=== PATIENT | male | born 1960 | race African-American/Black ===

== ENCOUNTER → 2019-07-06 16:14 | Outpatient (CLI) | payer BC, SELFPAY ==
--- NOTE | ~2019-07-06 | XR_ITS ---
XR toe 5th LT min 2V 07/06/2019 16:45 INDICATION: Left fifth toe pain PROCEDURE: 3 views left fifth toe COMPARISON: 07/06/2019 FINDINGS: Fracture, dislocation or subluxation is not identified. The soft tissues appear within norm al limits. No foreign bodies are identified. IMPRESSION: 1: NO ACUTE BONE OR JOINT ABNORMALITY IDENTIFIED. Reviewed, dictated and finalized at Location [facility]. Reviewed, dictated and finalized at location A. T MAINTENANCE ENGINEER
--- NOTE | ~2019-07-06 | XR_ITS ---
XR ankle LT min 3V, XR foot LT min 3V 07/06/2019 16:45 INDICATION: Left lateral ankle and foot pain PROCEDURE: 4 views left ankle and 4 views left foot COMPARISON: No prior studies for comparison. FINDINGS: Fracture, dislocation or subluxation is not identified. Lisfranc joint intact. The soft tis sues appear within normal limits. No foreign bodies are identified. There are moderate degenerative changes of the first MTP joint. There are degenerative changes of the midfoot. There are arterial betty cifications. IMPRESSION: 1: Mild-moderate polyarticular osteoarthritis. Reviewed, dictated and finalized at location A. HOLOGIST EDUCATIONAL IMPRESSION: 1: Mild-moderate polyarticular osteoarthritis.
== END ==
PROVIDERS: PCP Internal Medicine; Visit Provider Internal Medicine
DX: M79.676 Pain in unspecified toe(s) (principal)
CPT/HCPCS: 73610; 73630; 73660

== ENCOUNTER 2019-11-02 11:41 | Outpatient (CLI) | payer BC, SELFPAY ==
--- NOTE | ~2019-11-02 | XR_ITS ---
EXAMINATION: XR knee LT min 4V DATE: 11/02/2019 12:00 INDICATION: Left knee tightness. TECHNIQUE: 4 views of left knee were obtained. COMPARISON: None. FINDINGS: Bone alignment is normal. No fracture. There is mild osteoarthritis of medial and lateral c ompartments characterized by tiny marginal osteophytes. There is a small knee joint effusion. IMPRESSION: 1. Mild left knee osteoarthritis. 2. Small left knee joint effusion. Reviewed, dictated and finalized at location A.
== END 2019-11-02 11:42 | disposition home or self-care (01) ==
PROVIDERS: PCP Internal Medicine; Visit Provider Internal Medicine
DX: M17.12 Unilateral primary osteoarthritis, left knee (principal)
CPT/HCPCS: 73564

== ENCOUNTER 2019-11-15 13:09 | Outpatient (CLI) | payer BC, SELFPAY ==
--- NOTE | ~2019-11-15 | US_ITS ---
EXAMINATION: US joint [facility] DATE: 11/15/2019 13:41 INDICATION: Hammond's cyst. TECHNIQUE: Multiple grayscale and Doppler ultrasound images of the LPO fossa the left knee were obtai tc. COMPARISON: None FINDINGS: The popliteal artery and vein are patent with normal arterial and venous waveforms respectively. No B denny's cyst or other abnormal masses or fluid collections at the left popliteal fossa. IMPRESSION: 1. Normal study. No Hammond's cyst at the left popliteal fossa. Reviewed, dictated and finalized at location A.
== END 2019-11-15 13:10 | disposition home or self-care (01) ==
PROVIDERS: PCP Internal Medicine; Visit Provider Internal Medicine
DX: M25.569 Pain in unspecified knee (principal)
CPT/HCPCS: 76882

== ENCOUNTER → 2020-10-16 03:00 | Outpatient (CLI) | payer BC, SELFPAY ==
[2020-10-16 18:14] LABS: SARS-CoV-2 RNA PCR Negative
== END ==
PROVIDERS: PCP Internal Medicine; Visit Provider Internal Medicine Gastroenterology
DX: Z01.812 Encounter for preprocedural laboratory examination (principal); Z20.822 Contact with and (suspected) exposure to COVID-19
CPT/HCPCS: C9803; U0003; U0005

== ENCOUNTER 2020-10-19 01:40 | Day surgery (SDC) | payer BC, SELFPAY ==
[2020-10-09 13:10] VITALS: BMI 31.8
[2020-10-19 09:29] VITALS: BP 139/80; PULSE 60; RESP 18; TEMP 35.8; O2SAT 100
[2020-10-19] MEDS: LACTATED RINGERS 1,000 ML 150 ML IV CONT (09:47)
[2020-10-19 09:51] LABS: Glucose Point of Care 117 mg/dl (65-105)
--- NOTE | 2020-10-19 10:22 | WPDANESEPPF ---
Anes - Initial Pre Proc Eval Procedure: Operation Date: 10/19/20 11:00 Proposed Procedures p Screening Colonoscopy - Flaquito Crocker MD Date/Time: 10/19/20 10:22 Surgeon: Flaquito Crocker MD Pre Op Diagnosis: neoplasm screening Patient Data Age: 60 Gender: M Height: 5 ft 4 in Weight: 84 kg Last Vital Signs Temp 96.5 F L 10/19/20 09:29 Pulse 60 10/19/20 09:29 Resp 18 10/19/20 09:29 BP 139/80 10/19/20 09:29 Pulse Ox 100 10/19/20 09:29 Allergies Allergy/AdvReac Type Severity Reaction Status Date / Time NUTS AND MANY FRUITS Allergy Unknown Anaphylactic Uncoded 10/19/20 09:27 Shock Home Medications Medication Instructions Recorded Confirmed Type epinephrine 0.3 mg/0.3 mL 0.3 mg IM ONCE 03/25/19 10/19/20 History injection, auto-injector metformin 500 mg tablet 1,500 mg PO DAILY #90 tablet 04/20/19 10/19/20 Rx dapagliflozin 5 mg tablet 5 mg PO QAM #30 tablet 05/31/19 10/19/20 Rx cetirizine 10 mg tablet 10 mg PO DAILY #30 tablet 07/22/19 10/19/20 Rx sodium,potassium,mag sulfates 17.5 See Rx Instructions PO .COMPLEX 10/02/20 10/19/20 Rx gram-3.13 gram-1.6 gram oral soln #354 ml atorvastatin 20 mg PO DAILY 10/09/20 10/19/20 History famotidine 10 mg PO DAILY 10/09/20 10/19/20 History telmisartan 80 mg PO DAILY 10/09/20 10/19/20 History Laboratory Tests 10/19/20 09:48 POC Capillary Glucose 117 mg/dl H mg/dl (65-105) Patient hx anesthesia problems: none Family hx anesthesia problems: none PMFSH Past Medical History Medical History (Updated 03/25/19 @ 14:42 by Tamir Hinton, PAWaleC) BPH (benign prostatic hyperplasia) Controlled diabetes mellitus with hyperglycemia, without long-term current use of insulin Essential (primary) hypertension GERD (gastroesophageal reflux disease) TAMAR (obstructive sleep apnea) Family History Family History (Updated 12/14/15 @ 23:19 by DOCTOR UNKNOWN) Mother Hypertension Cerebrovascular accident Family history of diabetes mellitus in first degree relative Family history of malignant neoplasm of ovary Father Cerebrovascular accident Family history of diabetes mellitus in first degree relative Sibling Family history of diabetes mellitus in first degree relative Social History Social History Smoking status: Never smoker Alcohol intake: current Alcohol use details: socially Substance use: never Substance use type: does not use Living arrangements: with family Spiritual care concerns: No Anes - Eval Final PreProcedure Day of Procedure 10/19/20 10:22 Patient weight: overweight Heart: regular rate and rhythm Lungs: clear to auscultation Airway: Mallampati scale class II Neurological: alert and oriented Last oral intake: >/= 8 hours ASA classification: III Emergent: no Anesthetic plan: proceed Anesthesia type and monitoring: general GIVS and standard monitoring Informed Consent: The patient's anesthetic plan and its attendant risks and benefits were discussed with the patient/family/POA. Questions were solicited and answers provided to the satisfaction of the patient/family/POA.
--- NOTE | 2020-10-19 10:35 | P.HP_ITS ---
History of Present Illness History of Present Illness Consent: Risks, benefits, and alternatives have been discussed and questions answered. Patient agrees to proceed with procedure. Chief complaint: neoplasm screening Narrative: Jose Manuel Laura is a 60 year old male referred for colon cancer screening. His last colonoscopy was 10 years ago Review of Systems Review of Systems: All systems reviewed & are unremarkable except as noted in HPI and below PMFSH Past Medical History Medical History BPH (benign prostatic hyperplasia) Controlled diabetes mellitus with hyperglycemia, without long-term current use of insulin Essential (primary) hypertension GERD (gastroesophageal reflux disease) TAMAR (obstructive sleep apnea) Family History Family History Mother Hypertension Cerebrovascular accident Family history of diabetes mellitus in first degree relative Family history of malignant neoplasm of ovary Father Cerebrovascular accident Family history of diabetes mellitus in first degree relative Sibling Family history of diabetes mellitus in first degree relative Social History Social History Smoking status: Never smoker Alcohol intake: current Alcohol use details: socially Substance use: never Substance use type: does not use Living arrangements: with family Spiritual care concerns: No Meds Home Medications and Allergies Home Medications Medication Instructions Recorded Confirmed Type epinephrine 0.3 mg/0.3 mL 0.3 mg IM ONCE 03/25/19 10/19/20 History injection, auto-injector metformin 500 mg tablet 1,500 mg PO DAILY #90 tablet 04/20/19 10/19/20 Rx dapagliflozin 5 mg tablet 5 mg PO QAM #30 tablet 05/31/19 10/19/20 Rx cetirizine 10 mg tablet 10 mg PO DAILY #30 tablet 07/22/19 10/19/20 Rx sodium,potassium,mag sulfates 17.5 See Rx Instructions PO .COMPLEX 10/02/20 0 10/19/20 Rx gram-3.13 gram-1.6 gram oral soln #354 ml atorvastatin 20 mg PO DAILY 10/09/20 10/19/20 History famotidine 10 mg PO DAILY 10/09/20 10/19/20 History telmisartan 80 mg PO DAILY 10/09/20 10/19/20 History Allergies Allergy/AdvReac Type Severity Reaction Status Date / Time NUTS AND MANY FRUITS Allergy Unknown Anaphylactic Uncoded 10/19/20 09:27 Shock Vital Signs Vital Signs - 24 hr 10/19/20 09:29 Temperature 35.8 C L Pulse Rate 60 Respiratory Rate 18 Blood Pressure 139/80 Pulse Oximetry 100 Exam Resp: Auscultation: clear to auscultation bilaterally Cardio: Rate: regular rate Rhythm: regular rhythm GI: GI Palp: Yes Soft to palpation and No Tenderness to palpation present (GI) Assessment and Plan Assessment and plan (1) Colon cancer screening: Code(s): Z12.11 - Encounter for screening for malignant neoplasm of colon Status: Acute Assessment and Plan: Colonoscopy with possible biopsy or polypectomy or cautery or injection of substances.
[2020-10-19 10:50] VITALS: BP 113/80; PULSE 82; RESP 21; O2SAT 99
[2020-10-19 11:00] VITALS: BP 144/97; PULSE 67; RESP 20; O2SAT 99
[2020-10-19 11:10] VITALS: BP 140/95; RESP 17; O2SAT 99
== END 2020-10-19 11:43 | disposition home or self-care (01) ==
PROVIDERS: PCP Internal Medicine; Visit Provider Internal Medicine Gastroenterology
PROC: 0DJD8ZZ Inspection of Lower Intestinal Tract, Via Natural or Artificial Opening Endoscopic (ICD-10-PCS; CPT 45378; principal; 2020-10-19 11:00)
DX: Z12.11 Encounter for screening for malignant neoplasm of colon (principal); K57.30 Diverticulosis of large intestine without perforation or abscess without bleeding; I10 Essential (primary) hypertension; E11.9 Type 2 diabetes mellitus without complications; K21.9 Gastro-esophageal reflux disease without esophagitis; G47.33 Obstructive sleep apnea (adult) (pediatric); N40.0 Benign prostatic hyperplasia without lower urinary tract symptoms; Z79.84 Long term (current) use of oral hypoglycemic drugs
CPT/HCPCS: 45378; 82948; J2704; J7120

== ENCOUNTER 2022-03-19 00:03 | Day surgery (SDC) | payer BC, SELFPAY ==
[2022-03-13 10:54] VITALS: BMI 31.0
--- NOTE | 2022-03-18 17:17 | PM.HPGS ---
History of Present Illness History of Present Illness Consent: Risks, benefits, and alternatives have been discussed and questions answered. Patient agrees to proceed with procedure. Chief complaint: dysphagia Narrative: Jose Manuel Laura is a 61 year old male who For the past year and a half has had increasing difficulty with swallowing.? It only seems to occur with solid food.? He will be eating something and then it gets caught about long-term down.? He feels tightness and feels as though it might help if he drinks something but he is afraid that the liquid would not go down.? Finally it will pass.? These episodes have been occurring more frequently.? He does get heartburn he uses famotidine as needed for that but has not been on any daily medication in the past for acid reflux. Review of Systems Review of Systems: All systems reviewed & are unremarkable except as noted in HPI and below PMFSH Past Medical History Medical History BPH (benign prostatic hyperplasia) Controlled diabetes mellitus with hyperglycemia, without long-term current use of insulin Essential (primary) hypertension GERD (gastroesophageal reflux disease) TAMAR (obstructive sleep apnea) Family History Family History Mother Hypertension Cerebrovascular accident Family history of diabetes mellitus in first degree relative Family history of malignant neoplasm of ovary Father Cerebrovascular accident Family history of diabetes mellitus in first degree relative Sibling Family history of diabetes mellitus in first degree relative Social History Social History Smoking status: Never smoker Alcohol intake: current Alcohol use details: socially Substance use: never Substance use type: does not use Living arrangements: with family Spiritual care concerns: No Meds Home Medications and Allergies Home Medications Medication Instructions Recorded Confirmed Type epinephrine 0.3 mg/0.3 mL 0.3 mg IM ONCE PRN Anaphylaxis 03/25/19 03/19/22 History injection, auto-injector (EpiPen 2-Titus) metformin 500 mg tablet 1,500 mg PO DAILY #90 tabs 04/20/19 03/19/22 Rx cetirizine 10 mg tablet (Zyrtec) 10 mg PO DAILY #30 tabs 07/22/19 03/19/22 Rx atorvastatin 20 mg tablet 20 mg PO DAILY 10/09/20 03/19/22 History famotidine 10 mg tablet 20 mg PO DAILY 10/09/20 03/19/22 History telmisartan 80 mg tablet 80 mg PO DAILY 10/09/20 03/19/22 History semaglutide 3 mg tablet (Rybelsus) 3 mg PO DAILY 02/18/22 03/19/22 History coQ10 (ubiquinol) 200 mg capsule 200 mg PO DAILY 03/13/22 03/19/22 History Allergies Allergy/AdvReac Type Severity Reaction Status Date / Time NUTS AND MANY FRUITS Allergy Unknown Anaphylactic Uncoded 03/19/22 09:44 Shock Exam Const: General: alert Orientation/consciousness: patient oriented x3 Resp: Auscultation: clear to auscultation bilaterally Cardio: Rhythm: regular rhythm GI: GI Palp: Yes Soft to palpation and No Tenderness to palpation present (GI) Neuro: General: patient oriented x3 Assessment and Plan Assessment and plan (1) Dysphagia: Code(s): R13.10 - Dysphagia, unspecified Status: Acute Assessment and Plan: EGD with possible biopsy or dilatation or cautery.
[2022-03-19 09:45] VITALS: BP 140/81; PULSE 64; RESP 18; TEMP 36.1; O2SAT 100
[2022-03-19 09:46] LABS: Glucose Point of Care 108 mg/dl (65-105)
[2022-03-19] MEDS: LACTATED RINGERS 1,000 ML 150 ML IV CONT (09:47)
--- NOTE | 2022-03-19 10:29 | WPDANESEPPF ---
Anes - Initial Pre Proc Eval Procedure: Operation Date: 03/19/22 11:00 Proposed Procedures p Esophagogastroduodenoscopy EGD - Flaquito Crocker MD Date/Time: 03/19/22 10:29 Surgeon: Flaquito Crocker MD Pre Op Diagnosis: dysphagia Patient Data Age: 61 Gender: M Height: 1.63 m Weight: 81.2 kg Last Vital Signs Temp 96.9 F L 03/19/22 09:45 Pulse 64 03/19/22 09:45 Resp 18 03/19/22 09:45 BP 140/81 03/19/22 09:45 Pulse Ox 100 03/19/22 09:45 O2 Del Method Room Air 03/19/22 09:45 Allergies Allergy/AdvReac Type Severity Reaction Status Date / Time NUTS AND MANY FRUITS Allergy Unknown Anaphylactic Uncoded 03/19/22 09:44 Shock Home Medications Medication Instructions Recorded Confirmed Type epinephrine 0.3 mg/0.3 mL 0.3 mg IM ONCE PRN Anaphylaxis 03/25/19 03/19/22 History injection, auto-injector (EpiPen 2-Titus) metformin 500 mg tablet 1,500 mg PO DAILY #90 tabs 04/20/19 03/19/22 Rx cetirizine 10 mg tablet (Zyrtec) 10 mg PO DAILY #30 tabs 07/22/19 03/19/22 Rx atorvastatin 20 mg tablet 20 mg PO DAILY 10/09/20 03/19/22 History famotidine 10 mg tablet 20 mg PO DAILY 10/09/20 03/19/22 History telmisartan 80 mg tablet 80 mg PO DAILY 10/09/20 03/19/22 History semaglutide 3 mg tablet (Rybelsus) 3 mg PO DAILY 02/18/22 03/19/22 History coQ10 (ubiquinol) 200 mg capsule 200 mg PO DAILY 03/13/22 03/19/22 History Laboratory Tests 03/19/22 09:42 POC Capillary Glucose 108 mg/dl H mg/dl (65-105) Patient hx anesthesia problems: none Family hx anesthesia problems: none Results Review: All pre-operative results and documents have been reviewed as part of the pre-operative evaluation. [facility] Past Medical History Medical History BPH (benign prostatic hyperplasia) Controlled diabetes mellitus with hyperglycemia, without long-term current use of insulin Essential (primary) hypertension GERD (gastroesophageal reflux disease) TAMAR (obstructive sleep apnea) Family History Family History Mother Hypertension Cerebrovascular accident Family history of diabetes mellitus in first degree relative Family history of malignant neoplasm of ovary Father Cerebrovascular accident Family history of diabetes mellitus in first degree relative Sibling Family history of diabetes mellitus in first degree relative Social History Social History Smoking status: Never smoker Alcohol intake: current Alcohol use details: socially Substance use: never Substance use type: does not use Living arrangements: with family Spiritual care concerns: No Anes - Eval Final PreProcedure Day of Procedure 03/19/22 10:29 Patient weight: obese Heart: regular rate and rhythm Lungs: clear to auscultation Airway: Mallampati scale class II Neurological: alert and oriented Last oral intake: >/= 8 hours ASA classification: III Emergent: no Anesthetic plan: proceed Anesthesia type and monitoring: general GIVS and standard monitoring Results Review: All pre-operative results and documents have been reviewed as part of the pre-operative evaluation. Informed Consent: The patient's anesthetic plan and its attendant risks and benefits were discussed with the patient/family/POA. Questions were solicited and answers provided to the satisfaction of the patient/family/POA.
[2022-03-19 11:11] VITALS: BP 108/75; PULSE 88; RESP 13; O2SAT 99
[2022-03-19 11:21] VITALS: BP 118/80; PULSE 78; RESP 20; O2SAT 99
[2022-03-19 11:31] VITALS: BP 136/93; PULSE 80; RESP 20; O2SAT 99
[2022-03-19] MEDS: BENZOCAINE (*SP) 60 ML SPRAY CAN (HURRICAINE) 1 SPRAY MUCOUS MEM (11:33)
== END 2022-03-19 11:43 | disposition home or self-care (01) ==
PROVIDERS: PCP Internal Medicine; Visit Provider Internal Medicine Gastroenterology
PROC: 0DJ08ZZ Inspection of Upper Intestinal Tract, Via Natural or Artificial Opening Endoscopic (ICD-10-PCS; CPT 43235; principal; 2022-03-19 11:00)
DX: K22.2 Esophageal obstruction (principal); I10 Essential (primary) hypertension; E11.9 Type 2 diabetes mellitus without complications; G47.33 Obstructive sleep apnea (adult) (pediatric); K21.9 Gastro-esophageal reflux disease without esophagitis; N40.0 Benign prostatic hyperplasia without lower urinary tract symptoms; E66.9 Obesity, unspecified; Z68.30 Body mass index [BMI] 30.0-30.9, adult; Z79.84 Long term (current) use of oral hypoglycemic drugs
CPT/HCPCS: 43239; 43249; 82948; 88305; J2704; J7120

== ENCOUNTER 2022-06-09 00:02 | Day surgery (SDC) | payer BC, SELFPAY ==
[2022-05-26 13:39] VITALS: BMI 31.0
--- NOTE | 2022-06-06 12:11 | PM.HPGS ---
History of Present Illness History of Present Illness Consent: Risks, benefits, and alternatives have been discussed and questions answered. Patient agrees to proceed with procedure. Chief complaint: esophageal stricture Narrative: Jose Manuel Laura is a 61 year old male who is here for treatment of an esophageal stricture. He had been having a great deal of difficulty swallowing solid food. An EGD done in March revealed a severe stricture the distal esophagus which could be dilated up to about 16 mm. Prior to that he had been using famotidine. I started him on pantoprazole 40 mg per day. Biopsies at that time were negative for eosinophilic esophagitis. Review of Systems Review of Systems: All systems reviewed & are unremarkable except as noted in HPI and below PMFSH Past Medical History Medical History BPH (benign prostatic hyperplasia) Controlled diabetes mellitus with hyperglycemia, without long-term current use of insulin Essential (primary) hypertension GERD (gastroesophageal reflux disease) TAMAR (obstructive sleep apnea) Family History Family History Mother Hypertension Cerebrovascular accident Family history of diabetes mellitus in first degree relative Family history of malignant neoplasm of ovary Father Cerebrovascular accident Family history of diabetes mellitus in first degree relative Sibling Family history of diabetes mellitus in first degree relative Social History Social History Smoking status: Never smoker Alcohol intake: current Alcohol use details: socially Substance use: never Substance use type: does not use Living arrangements: alone Spiritual care concerns: No Meds Home Medications and Allergies Home Medications Medication Instructions Recorded Confirmed Type epinephrine 0.3 mg/0.3 mL 0.3 mg IM ONCE PRN Anaphylaxis 03/25/19 05/26/22 History injection, auto-injector (EpiPen 2-Titus) metformin 500 mg tablet 1,500 mg PO DAILY #90 tabs 04/20/19 05/26/22 Rx cetirizine 10 mg tablet (Zyrtec) 10 mg PO DAILY #30 tabs 07/22/19 05/26/22 Rx atorvastatin 20 mg tablet 20 mg PO DAILY 10/09/20 05/26/22 History telmisartan 80 mg tablet 80 mg PO DAILY 10/09/20 05/26/22 History semaglutide 3 mg tablet (Rybelsus) 3 mg PO DAILY 02/18/22 05/26/22 History coQ10 (ubiquinol) 200 mg capsule 200 mg PO DAILY 03/13/22 05/26/22 History pantoprazole 40 mg tablet,delayed 40 mg PO QAM #30 tabs 03/19/22 05/26/22 Rx release Allergies Allergy/AdvReac Type Severity Reaction Status Date / Time NUTS AND MANY FRUITS Allergy Unknown Anaphylactic Uncoded 06/09/22 09:48 Shock Exam Const: General: alert Orientation/consciousness: patient oriented x3 Resp: Auscultation: clear to auscultation bilaterally Cardio: Rhythm: regular rhythm GI: GI Palp: Yes Soft to palpation and No Tenderness to palpation present (GI) Neuro: General: patient oriented x3 Assessment and Plan Assessment and plan (1) Dysphagia: Code(s): R13.10 - Dysphagia, unspecified Status: Acute Assessment and Plan: EGD with possible biopsy or dilatation or cautery.
[2022-06-09 09:50] VITALS: BP 139/91; PULSE 67; RESP 18; TEMP 36.1; O2SAT 100
[2022-06-09] MEDS: LACTATED RINGERS 1,000 ML 150 ML IV CONT (10:01)
[2022-06-09 10:02] LABS: Glucose Point of Care 126 mg/dl (65-105)
--- NOTE | 2022-06-09 10:57 | WPDANESEPPF ---
Anes - Initial Pre Proc Eval Procedure: Operation Date: 06/09/22 11:00 Proposed Procedures p Esophagogastroduodenoscopy EGD - Flaquito Crocker MD Date/Time: 06/09/22 10:57 Surgeon: Flaquito Crocker MD Pre Op Diagnosis: esophageal stricture Patient Data Age: 61 Gender: M Height: 1.63 m Weight: 82.9 kg Last Vital Signs Temp 97 F L 06/09/22 09:50 Pulse 67 06/09/22 09:50 Resp 18 06/09/22 09:50 BP 139/91 H 06/09/22 09:50 Pulse Ox 100 06/09/22 09:50 O2 Del Method Room Air 06/09/22 09:50 Allergies Allergy/AdvReac Type Severity Reaction Status Date / Time NUTS AND MANY FRUITS Allergy Unknown Anaphylactic Uncoded 06/09/22 09:48 Shock Home Medications Medication Instructions Recorded Confirmed Type epinephrine 0.3 mg/0.3 mL 0.3 mg IM ONCE PRN Anaphylaxis 03/25/19 05/26/22 History injection, auto-injector (EpiPen 2-Titus) metformin 500 mg tablet 1,500 mg PO DAILY #90 tabs 04/20/19 05/26/22 Rx cetirizine 10 mg tablet (Zyrtec) 10 mg PO DAILY #30 tabs 07/22/19 05/26/22 Rx atorvastatin 20 mg tablet 20 mg PO DAILY 10/09/20 05/26/22 History telmisartan 80 mg tablet 80 mg PO DAILY 10/09/20 05/26/22 History semaglutide 3 mg tablet (Rybelsus) 3 mg PO DAILY 02/18/22 05/26/22 History coQ10 (ubiquinol) 200 mg capsule 200 mg PO DAILY 03/13/22 05/26/22 History pantoprazole 40 mg tablet,delayed 40 mg PO QAM #30 tabs 03/19/22 05/26/22 Rx release Laboratory Tests 06/09/22 09:59 POC Capillary Glucose 126 mg/dl H mg/dl (65-105) Patient hx anesthesia problems: none Family hx anesthesia problems: none Results Review: All pre-operative results and documents have been reviewed as part of the pre-operative evaluation. [facility] Past Medical History Medical History BPH (benign prostatic hyperplasia) Controlled diabetes mellitus with hyperglycemia, without long-term current use of insulin Essential (primary) hypertension GERD (gastroesophageal reflux disease) TAMAR (obstructive sleep apnea) Family History Family History Mother Hypertension Cerebrovascular accident Family history of diabetes mellitus in first degree relative Family history of malignant neoplasm of ovary Father Cerebrovascular accident Family history of diabetes mellitus in first degree relative Sibling Family history of diabetes mellitus in first degree relative Social History Social History Smoking status: Never smoker Alcohol intake: current Alcohol use details: socially Substance use: never Substance use type: does not use Living arrangements: alone Spiritual care concerns: No Anes - Eval Final PreProcedure Day of Procedure 06/09/22 10:57 Patient weight: obese Heart: regular rate and rhythm Lungs: clear to auscultation Airway: Mallampati scale class II Neurological: alert and oriented Last oral intake: >/= 8 hours ASA classification: III Emergent: no Anesthetic plan: proceed Anesthesia type and monitoring: general GIVS and standard monitoring Results Review: All pre-operative results and documents have been reviewed as part of the pre-operative evaluation. Informed Consent: The patient's anesthetic plan and its attendant risks and benefits were discussed with the patient/family/POA. Questions were solicited and answers provided to the satisfaction of the patient/family/POA.
[2022-06-09 11:24] VITALS: BP 139/99; PULSE 84; RESP 14; O2SAT 100
[2022-06-09 11:34] VITALS: BP 145/98; PULSE 82; RESP 24; O2SAT 100
[2022-06-09 11:44] VITALS: BP 144/98; PULSE 73; RESP 19; O2SAT 100
== END 2022-06-09 11:49 | disposition home or self-care (01) ==
PROVIDERS: PCP Internal Medicine; Visit Provider Internal Medicine Gastroenterology
PROC: 0DJ08ZZ Inspection of Upper Intestinal Tract, Via Natural or Artificial Opening Endoscopic (ICD-10-PCS; CPT 43235; principal; 2022-06-09 11:00)
DX: K22.2 Esophageal obstruction (principal); K21.9 Gastro-esophageal reflux disease without esophagitis; K44.9 Diaphragmatic hernia without obstruction or gangrene; E11.9 Type 2 diabetes mellitus without complications; I10 Essential (primary) hypertension; G47.33 Obstructive sleep apnea (adult) (pediatric); N40.0 Benign prostatic hyperplasia without lower urinary tract symptoms; E66.9 Obesity, unspecified; Z68.31 Body mass index [BMI] 31.0-31.9, adult; Z79.84 Long term (current) use of oral hypoglycemic drugs
CPT/HCPCS: 43249; 82948; C1726; J2001; J2704; J7120

== ENCOUNTER 2022-07-22 09:34 | Outpatient (CLI) | payer BC, SELFPAY ==
--- NOTE | ~2022-07-22 | XR_ITS ---
EXAMINATION: XR chest 2V Exam Date/Time: 07/22/2022 9:52 OBSTETRICS GYNECOLOGY MD HISTORY: Generalized hyperhidrosis; hx of HTN, non smoker Comparison: 01/31/2013. RESULT: Lines, tubes, and devices: None. Lungs and pleura: Left lower lung scar, otherwise clear. Cardiomediastinal silhouette: Stable. Other: No acute osseous or upper abdominal finding. IMPRESSION: No acute cardiopulmonary process. Reviewed, dictated and finalized at location K. ETRICS GYNECOLOGY MD
== END 2022-07-22 09:35 ==
LOC: MICIMG 09:37
PROVIDERS: PCP Internal Medicine; Visit Provider Internal Medicine
DX: R61 Generalized hyperhidrosis (principal)
CPT/HCPCS: 71046

== ENCOUNTER 2022-10-03 12:52 | Outpatient (CLI) | payer BC, SELFPAY ==
[2022-10-03 13:06] LABS: Basophils Absolute Auto 0.1 K/mm3 (0.0-0.1); Eosinophils Absolute Auto 0.1 K/mm3 (0-0.3); Eosinophils Percent Auto 2.6 % (0-4.4); Hematocrit 43.3 % (42.0-52.0); Hemoglobin 14.8 g/dL (14.0-18.0); Lymphocytes Absolute Auto 2.16 K/mm3 (0.9-3.2); Lymphocytes Percent Auto 42.7 % (18.3-44.2); Mean Corpuscular HGB Conc 34.2 g/dl (32-36); Mean Corpuscular Hemoglobin 28.5 pg (26-34); Mean Corpuscular Volume 83.3 fl (80-100); Mean Platelet Volume 9.4 fl (7.4-10.4); Monocytes Absolute Auto 0.4 K/mm3 (0.1-0.6); Monocytes Percent Auto 7.9 % (2.6-8.5); Neutrophils Absolute Auto 2.3 K/mm3 (1.3-6.7); Neutrophils Percent Auto 45.8 % (45.5-73.1); Platelet Count Result 288 k/mm3 (150-375); Red Cell Distribution Width 12.4 % (11.5-14.5); White Blood Count 5.1 K/mm3 (4.5-10.0)
[2022-10-03 16:18] LABS: Alanine Aminotransferase 30 U/L (6-50); Albumin Level 4.5 g/dL (3.5-5.1); Alkaline Phosphatase 83 U/L (38-126); Anion Gap 10 mmol/L (8-16); Aspartate Amino Transferase 63 U/L (17-59); Bilirubin,Total 1.2 mg/dL (0.2-1.3); Blood Urea Nitrogen 12 mg/dL (9-20); Calcium 9.1 mg/dL (8.4-10.2); Carbon Dioxide 27 mmol/L (22-30); Chloride 104 mmol/L (98-107); Estimated Glomerular Filt Rate > 60; Glucose 120 mg/dL (65-110); Lactate Dehydrogenase 184 U/L (120-246); Potassium 4.4 mmol/L (3.4-5.0); Sodium 141 mmol/L (137-145)
[2022-10-07 13:39] LABS: NIL 0.02 IU/mL; Quantiferon TB Plus, 1T NEGATIVE (NEGATIVE)
[2022-10-09 14:31] LABS: Testosterone Free 72.9 pg/mL (35.0-155.0); Testosterone Total 396 ng/dL (250-1100)
== END 2022-10-03 12:53 | disposition home or self-care (01) ==
LOC: ANHLAB 12:53
PROVIDERS: PCP Internal Medicine; Visit Provider Internal Medicine Hematology & Oncology
DX: R61 Generalized hyperhidrosis (principal)
CPT/HCPCS: 36415; 80053; 83615; 84402; 84403; 85025; 86480

== ENCOUNTER 2022-10-16 08:40 | Outpatient (CLI) | payer BC, SELFPAY ==
--- NOTE | ~2022-10-16 | CT_ITS ---
Clinical Indication: Night sweats CT Scan of the Chest, Abdomen, and Pelvis with Contrast: Technique: Contiguous sections were acquired throughout the chest, abdomen, and pelvis after intraven ous administration of 100 cc of Omnipaque 350. Dose reduction technique was used on this scan by andi kennedy automated exposure control and iterative reconstruction technique. The dose-length product (DL P) was 904.38 mGy-cm. Findings: There is no evidence of any significant mediastinal, hilar or axillary lymphadenopathy. The mediastin al soft tissues and vascular structures appear normal. There is no evidence of pleural or pericardial effusion. There is bilateral lower lobe pulmonary scarring. No other pulmonary abnormality seen. There is probable diffuse fatty infiltration of the liver. The spleen, pancreas, gallbladder, adrenal s and kidneys are within normal limits. No evidence of aortic aneurysm. No lymphadenopathy. No bowel obstruction or bowel wall thickening. There is no evidence to suggest acute appendicitis. Diffuse urinary bladder wall thickening is present. Prostate gland is enlarged, and indents through t he bladder base. No ascites. Impression: Urinary bladder wall thickening is suspicious for cystitis. Correlate with urinalysis. Markedly enlarged prostate gland which indents the bladder base. Diffuse fatty infiltration of the liver. Reviewed, dictated and finalized at location . Impression: Urinary bladder wall thickening is suspicious for cystitis. Correlate with urin alysis. Markedly enlarged prostate gland which indents the bladder base. Diffuse fatty infiltration of the liver.
== END 2022-10-16 08:41 | disposition home or self-care (01) ==
PROVIDERS: PCP Internal Medicine; Visit Provider Internal Medicine Hematology & Oncology
DX: R61 Generalized hyperhidrosis (principal); K76.0 Fatty (change of) liver, not elsewhere classified
CPT/HCPCS: 71260; 74177; Q9967

== ENCOUNTER 2023-01-14 13:00 | Outpatient (CLI) | payer BC, SELFPAY ==
--- NOTE | 2023-01-14 13:09 | ECG_ITS ---
Measurements Intervals [place] Rate: 76 P: 149 AL: 140 QRS: 138 QRSD: 108 T: -27 QT: 371 QTc: 417 Interpretive Statements NORMAL SINUS RHYTHM POSSIBLE LEFT ATRIAL ENLARGEMENT [-0.1mV P WAVE IN V1/V2] POSSIBLE RIGHT VENTRICULAR HYPERTROPHY [SOME/ALL OF: PROMINENT R IN V1, LATE TRANSITION, RAD, MYLES, SSS] POSSIBLE ANTERIOR MYOCARDIAL INFARCTION [30 ms Q WAVE IN V3/V4, OR R < 0.2 mV IN V4], PROBABLY OLD ABNORMAL ECG NO PREVIOUS ECG AVAILABLE FOR COMPARISON Electronically Signed On 01-14-2023 14:02:39 CDT by Edd Osborn M.D.
[2023-01-14 13:52] LABS: Basophils Absolute Auto 0.1 K/mm3 (0.0-0.1); Basophils Percent Auto 0.9 % (0.2-1.2); Eosinophils Absolute Auto 0.1 K/mm3 (0-0.3); Eosinophils Percent Auto 2.5 % (0-4.4); Hematocrit 43.4 % (42.0-52.0); Hemoglobin 14.4 g/dL (14.0-18.0); Immature Granulocyte Absolute 0.02 K/mm3 (0.00-0.031); Immature Granulocyte Percent A 0.4 % (0-0.5); Lymphocytes Percent Auto 43.6 % (18.3-44.2); Mean Corpuscular HGB Conc 33.2 g/dl (32-36); Mean Corpuscular Hemoglobin 28.2 pg (26-34); Mean Corpuscular Volume 85.1 fl (80-100); Mean Platelet Volume 9.5 fl (7.4-10.4); Monocytes Absolute Auto 0.4 K/mm3 (0.1-0.6); Monocytes Percent Auto 7.4 % (2.6-8.5); Neutrophils Absolute Auto 2.5 K/mm3 (1.3-6.7); Neutrophils Percent Auto 45.2 % (45.5-73.1); Platelet Count Result 300 k/mm3 (150-375); Red Cell Distribution Width 13.1 % (11.5-14.5); White Blood Count 5.5 K/mm3 (4.5-10.0)
[2023-01-14 14:02] LABS: INR 0.9; Prothrombin Time 12.8 Seconds (11.1-14.7)
[2023-01-14 14:03] LABS: Partial Thromboplastin Time 25.9 SECONDS (22.3-36.8)
[2023-01-14 14:04] LABS: Anion Gap 9 mmol/L (8-16); Blood Urea Nitrogen 11 mg/dL (9-20); Calcium 9.2 mg/dL (8.4-10.2); Carbon Dioxide 27 mmol/L (22-30); Chloride 105 mmol/L (98-107); Estimated Glomerular Filt Rate > 60; Glucose 146 mg/dL (65-110); Potassium 4.1 mmol/L (3.4-5.0); Sodium 141 mmol/L (137-145)
== END 2023-01-14 13:01 | disposition home or self-care (01) ==
LOC: ANHSURGERY 13:03
PROVIDERS: PCP Internal Medicine; Visit Provider Urology
DX: Z01.812 Encounter for preprocedural laboratory examination (principal); Z01.810 Encounter for preprocedural cardiovascular examination; N40.0 Benign prostatic hyperplasia without lower urinary tract symptoms; I10 Essential (primary) hypertension; R94.31 Abnormal electrocardiogram [ECG] [EKG]
CPT/HCPCS: 36415; 80048; 85025; 85610; 85730; 87086; 93005

== ENCOUNTER 2023-01-20 00:02 | Day surgery (SDC) | payer BC, SELFPAY ==
--- NOTE | 2023-01-12 12:47 | PC.NURSE ---
Report to the Outpatient Waiting Room, entrance under the green pavilion located off [facility], at time 10:30 on date 01/20/23. Planned Procedure Time: 12:30. Time changes happen often and if your time is changed the preop area will call you the afternoon before. - You and your visitor will be asked to self-screen and do not enter if you have any COVID symptoms. - A mask is optional within the hospital at this time. Patients may have clear liquids (water, carbonated beverages, clear teas, apple juice) until 3 hours prior to surgery with a maximum of 20 ounces. - No food from midnight until time of surgery Take the following medications with a SIP of water the morning of surgery: NONE DO NOT STOP ANY OF YOUR OTHER PRESCRIPTION MEDICATIONS PRIOR TO SURGERY ?EXCEPT THE FOLLOWING Medications to discontinue per physician: VITAMINS/SUPPLEMENTS Date to take last dose: 01/16/23 Please no make-up, nail japanese, hairspray, perfume, deodorant, or body powder the day of surgery. No jewelry (including any body piercings) or valuables the day of surgery, leave them at home. Please take a shower or bath the night before, or the morning of, surgery with an antibacterial soap. Wear comfortable, loose fitting clothing. - Jewelry must be removed prior to entering the operating room. Rings and piercings that are not removed may be cut off. - The hospital will not accept responsibility for valuables. - Please leave all valuables, including medications, at home the day of surgery. If you are going home after surgery, a licensed special client bus driver must drive you home. - NO public transportation without another adult if you receive anesthesia. - We recommend that an adult stay with you for 24 hours following discharge. - We also recommend that you do not drive, make important decision, drink alcoholic beverages, or take any drugs that were not prescribed by your health care provider for at least 24 hours after your discharge time. Follow any additional instructions given to you from your surgeon. If you or anyone in your household have experienced Covid symptoms in the past week, please notify your surgeon or the nurse liaison at the phone number below for possible testing. Telephone instructions given to PT - UZMA RODRIGUEZ and asked if any additional questions and then verbalized understanding. Patient advised to call surgeon office or pre surgery nurse liaison [phone] if any additional questions.
[2023-01-20] VITALS (12 sets, daily range): BP systolic 80–144; BP diastolic 51–97; PULSE 60–102; RESP 11–20; TEMP 35.8–36.8; O2SAT 94–100
[2023-01-20 10:56] LABS: Glucose Point of Care 105 mg/dl (65-105)
--- NOTE | 2023-01-20 11:05 | WPDANESEPPF ---
Anes - Initial Pre Proc Eval Procedure: Operation Date: 01/20/23 12:30 Proposed Procedures p Trans Urethral Resection Prostate - Josh Bernal MD Date/Time: 01/20/23 11:05 Surgeon: Josh Bernal MD Pre Op Diagnosis: BPH Patient Data Age: 62 Gender: M Height: 1.63 m Weight: 78.75 kg Last Vital Signs Temp 36.8 C 01/20/23 10:32 Pulse 66 01/20/23 10:32 Resp 16 01/20/23 10:32 BP 144/77 H 01/20/23 10:32 Pulse Ox 100 01/20/23 10:32 O2 Del Method Room Air 01/20/23 10:32 Allergies Allergy/AdvReac Type Severity Reaction Status Date / Time NUTS AND MANY FRUITS Allergy Unknown Anaphylactic Uncoded 01/20/23 10:39 Shock Home Medications Medication Instructions Recorded Confirmed Type epinephrine 0.3 mg/0.3 mL 0.3 mg IM ONCE PRN Anaphylaxis 03/25/19 01/20/23 History injection, auto-injector (EpiPen 2-Titus) metformin 500 mg tablet 1,500 mg PO DAILY #90 tabs 04/20/19 01/20/23 Rx cetirizine 10 mg tablet (Zyrtec) 10 mg PO DAILY #30 tabs 07/22/19 01/20/23 Rx atorvastatin 20 mg tablet 20 mg PO DAILY 10/09/20 01/20/23 History telmisartan 80 mg tablet 80 mg PO DAILY 10/09/20 01/20/23 History semaglutide 3 mg tablet (Rybelsus) 3 mg PO DAILY 02/18/22 01/20/23 History coQ10 (ubiquinol) 200 mg capsule 200 mg PO DAILY 03/13/22 01/20/23 History pantoprazole 40 mg tablet,delayed 40 mg PO QAM #90 tabs 07/11/22 01/20/23 Rx release azelastine 137 mcg (0.1 %) nasal 1 spray intranasal Q12H #30 mL 11/25/22 01/20/23 Rx spray aerosol fluticasone propionate 50 1 spray intranasal BID #16 grams 11/25/22 01/20/23 Rx mcg/actuation nasal spray,suspension (Flonase Allergy Relief) tadalafil 5 mg tablet 5 mg PO DAILY 01/12/23 01/20/23 History aspirin 81 mg chewable tablet 81 mg PO DAILY 01/20/23 01/20/23 History Laboratory Tests 01/20/23 10:53 POC Capillary Glucose 105 mg/dl (65-105) Patient hx anesthesia problems: none Family hx anesthesia problems: none Results Review: All pre-operative results and documents have been reviewed as part of the pre-operative evaluation. [facility] Past Medical History Medical History BPH (benign prostatic hyperplasia) Controlled diabetes mellitus with hyperglycemia, without long-term current use of insulin Essential (primary) hypertension GERD (gastroesophageal reflux disease) TAMAR (obstructive sleep apnea) Family History Family History Mother Hypertension Cerebrovascular accident Family history of diabetes mellitus in first degree relative Family history of malignant neoplasm of ovary Father Cerebrovascular accident Family history of diabetes mellitus in first degree relative Sibling Family history of diabetes mellitus in first degree relative Social History Social History (Updated 11/25/22 @ 09:14 by REGAN Hernandez) Smoking status: Never smoker Alcohol intake: current Alcohol use details: 1 EVERY 4 MONTHS Substance use: never Substance use type: does not use Living arrangements: with family Occupation/Education: occupation Gender identity (if verbalized by the patient): Male Spiritual care concerns: No Anes - Eval Final PreProcedure Day of Procedure 01/20/23 11:05 Patient weight: overweight Heart: regular rate and rhythm Lungs: clear to auscultation Airway: Mallampati scale class III Neurological: alert and oriented Last oral intake: >/= 8 hours ASA classification: III Emergent: no Anesthetic plan: proceed Anesthesia type and monitoring: general LMA and standard monitoring Results Review: All pre-operative results and documents have been reviewed as part of the pre-operative evaluation. Informed Consent: The patient's anesthetic plan and its attendant risks and benefits were discussed with the patient/family/POA. Questions were solicited and answers provid
[2023-01-20] MEDS: LACTATED RINGERS 1,000 ML 30 ML IV CONT ×2 (11:08→13:06)
--- NOTE | 2023-01-20 11:40 | PM.IMHP ---
H&P: HPI History of Present Illness Date/Time: 01/20/23 11:40 Chief Complaint: BPH Narrative: 62-year-old male who presents for transurethral resection of prostate. Review of Systems Review of Systems: All systems reviewed & are unremarkable except as noted in HPI and below PMFSH Past Medical History Medical History BPH (benign prostatic hyperplasia) Controlled diabetes mellitus with hyperglycemia, without long-term current use of insulin Essential (primary) hypertension GERD (gastroesophageal reflux disease) TAMAR (obstructive sleep apnea) Family History Family History Mother Hypertension Cerebrovascular accident Family history of diabetes mellitus in first degree relative Family history of malignant neoplasm of ovary Father Cerebrovascular accident Family history of diabetes mellitus in first degree relative Sibling Family history of diabetes mellitus in first degree relative Social History Social History Smoking status: Never smoker Alcohol intake: current Alcohol use details: 1 EVERY 4 MONTHS Substance use: never Substance use type: does not use Living arrangements: with family Occupation/Education: occupation Gender identity (if verbalized by the patient): Male Spiritual care concerns: No Meds Home Medications and Allergies Home Medications Medication Instructions Recorded Confirmed Type epinephrine 0.3 mg/0.3 mL 0.3 mg IM ONCE PRN Anaphylaxis 03/25/19 01/20/23 History injection, auto-injector (EpiPen 2-Titus) metformin 500 mg tablet 1,500 mg PO DAILY #90 tabs 04/20/19 01/20/23 Rx cetirizine 10 mg tablet (Zyrtec) 10 mg PO DAILY #30 tabs 07/22/19 01/20/23 Rx atorvastatin 20 mg tablet 20 mg PO DAILY 10/09/20 01/20/23 History telmisartan 80 mg tablet 80 mg PO DAILY 10/09/20 01/20/23 History semaglutide 3 mg tablet (Rybelsus) 3 mg PO DAILY 02/18/22 01/20/23 History coQ10 (ubiquinol) 200 mg capsule 200 mg PO DAILY 03/13/22 01/20/23 History pantoprazole 40 mg tablet,delayed 40 mg PO QAM #90 tabs 07/11/22 01/20/23 Rx release azelastine 137 mcg (0.1 %) nasal 1 spray intranasal Q12H #30 mL 11/25/22 01/20/23 Rx spray aerosol fluticasone propionate 50 1 spray intranasal BID #16 grams 11/25/22 01/20/23 Rx mcg/actuation nasal spray,suspension (Flonase Allergy Relief) tadalafil 5 mg tablet 5 mg PO DAILY 01/12/23 01/20/23 History aspirin 81 mg chewable tablet 81 mg PO DAILY 01/20/23 01/20/23 History Allergies Allergy/AdvReac Type Severity Reaction Status Date / Time NUTS AND MANY FRUITS Allergy Unknown Anaphylactic Uncoded 01/20/23 10:39 Shock Vital Signs Vital Signs - 24 hr 01/20/23 10:32 Temperature 36.8 C Pulse Rate 66 Respiratory Rate 16 Blood Pressure 144/77 H Pulse Oximetry 100 Oxygen Delivery Room Air Exam Const: General: cooperative and comfortable Resp: Effort & Inspection: normal respiratory effort Cardio: Rate: regular rate Rhythm: regular rhythm Assessment and Plan Assessment and plan (1) BPH (benign prostatic hyperplasia): Code(s): N40.0 - Benign prostatic hyperplasia without lower urinary tract symptoms Status: Chronic Assessment and Plan: Proceed with transurethral resection of prostate
--- NOTE | 2023-01-20 11:41 | WPDHPUPDATE1 ---
History and Physical Update Update Date/Time: 01/20/23 11:41 History and Physical has been reviewed, including an updated exam of the patient. There are NO changes in the patient's condition. Risks, benefits, and alternatives have been discussed and questions answered. Patient agrees to proceed with procedure.
--- NOTE | 2023-01-20 12:46 | W.PM.PROC2 ---
Procedure Note - Detailed Date of Procedure 01/20/23 Pre-op Diagnosis BPH Post-op Diagnosis Same Procedure Performed Transurethral resection of prostate Surgeon Josh Bernal MD Anesthesia General Findings Large median lobe Description of Procedure Patient was taken to the operative suite correctly identified. Once anesthesia was obtained was placed in dorsal lithotomy position and prepped and draped usual sterile fashion. Twenty-four [place] resectoscope sheath inserted the bladder. There is no tumors. Both ureteral orifices were visualized. He has a very large median lobe. The resection was begun by resecting at the 5 and 7:00 a.m. positions from the bladder neck to the vera. We then took down the lateral lobes from 12-6 o'clock bilaterally. The median lobe was taken down last. Chips were then retrieved were sent for analysis. Hemostasis was achieved using electrocautery. Patient tolerated procedure well without any complications. 2% viscous lidocaine was inserted into the urethra. Twenty-four South [place] [address] was placed with 20 cc in the balloon. This completes dictation. Please send a copy of op note to my office. Estimated Blood Loss 75 Drains Yes Packing No Pathology Yes Complications No immediate complications Condition Stable Disposition PACU
[2023-01-20] MEDS: fentaNYL CITRATE INJ (*CRX) 100 MCG/2 ML VIAL 25 MCG IV PUSH ×4 (13:25→14:05)
[2023-01-20] MEDS: HYOSCYAMINE SULFATE 0.125 MG TABLET PO (13:47)
[2023-01-20 13:59] LABS: Glucose Point of Care 105 mg/dl (65-105)
[2023-01-20] MEDS: DEXTROSE 5%/LACTATED RINGERS 1,000 ML 125 ML IV CONT (14:57)
--- NOTE | 2023-01-20 15:29 | ADMGEN ---
This patient, Jose Manuel Laura, was admitted to 3 [facility] Surg Room 309-01. Patient/family oriented to hospital policies and general routines including ID bracelet, bed and alarms, visiting hours, pain management, procedures, bathroom and other care routines, personal items, smoking policy, room service/diet, and visiting hours. Information on how to activate the Rapid Response Team has been discussed. Patient/Family are encouraged to report perceived risks to care and to ask questions if they do not understand what they are told or what they should do.
[2023-01-20] MEDS: HYDROcodone/acetaminophen (*CRX) 5-325 MG TABLET 1 TAB PO ×2 (15:51→20:14)
[2023-01-20] MEDS: DOCUSATE SODIUM 100 MG CAPSULE PO (16:45)
[2023-01-20] MEDS: ceFAZolin 1 GM/NS 50 ML 1 GM/50 ML BAG IVPB (18:11)
[2023-01-20] MEDS: HYOSCYAMINE SULFATE 0.125 MG TABLET SUBLINGUAL (20:14)
[2023-01-21 00:05] VITALS: BP 118/70; PULSE 85; RESP 16; TEMP 36.6; O2SAT 96
[2023-01-21] MEDS: ceFAZolin 1 GM/NS 50 ML 1 GM/50 ML BAG IVPB (03:10)
[2023-01-21 04:05] VITALS: BP 119/82; PULSE 71; RESP 16; TEMP 36.1; O2SAT 97
[2023-01-21 06:19] LABS: Hematocrit 41.5 % (42.0-52.0)
[2023-01-21 06:32] LABS: Anion Gap 6 mmol/L (8-16); Blood Urea Nitrogen 11 mg/dL (9-20); Calcium 8.5 mg/dL (8.4-10.2); Carbon Dioxide 26 mmol/L (22-30); Chloride 103 mmol/L (98-107); Estimated CRCL calculation 73 ml/min; Estimated Glomerular Filt Rate > 60; Glucose 118 mg/dL (65-110); Potassium 4.2 mmol/L (3.4-5.0); Sodium 135 mmol/L (137-145)
[2023-01-21] MEDS: metFORMIN HCL 500 MG TABLET 1500 MG PO (08:50)
[2023-01-21] MEDS: CEPHALEXIN 500 MG CAPSULE PO ×2 (08:51→12:29)
[2023-01-21] MEDS: TELMISARTAN 40 MG TABLET 80 MG PO (08:51)
[2023-01-21] MEDS: DOCUSATE SODIUM 100 MG CAPSULE PO (08:52)
[2023-01-21] MEDS: PANTOPRAZOLE 40 MG TABLET PO (08:52)
[2023-01-21] MEDS: ATORVASTATIN 20 MG TABLET PO (08:52)
[2023-01-21] MEDS: HYDROcodone/acetaminophen (*CRX) 5-325 MG TABLET 1 TAB PO (09:00)
--- NOTE | 2023-01-21 10:52 | WPDUROPN2 ---
Progress Note: A&P Assessment and Plan (1) BPH (benign prostatic hyperplasia): Code(s): N40.0 - Benign prostatic hyperplasia without lower urinary tract symptoms Status: Chronic Assessment and Plan: Encourage activity today off CBI, if urine remains clear ok to discharge home after lunch with leg bag. Teach catheter care. Catheter to be removed on Thursday in the office. Subjective Subjective Date/Time Seen: 01/21/23 10:52 Post Op day: 1 Interval history: S/P TURP Patient is tolerating pain, activity and diet well. He is passing gas as well. Urine is clear on CBI. CBI was stopped during our visit this morning. Review of Systems Cardiovascular: Cardiovascular: Denies chest pain Respiratory: Respiratory: Reports no additional respiratory complaints Gastrointestinal: Gastrointestinal: Denies abdominal pain, Reports constipation, Denies nausea and Denies vomiting Genitourinary: Genitourinary: Denies hematuria and Denies flank pain Exam Const: General: cooperative and comfortable Resp: Effort & Inspection: normal respiratory effort Cardio: Rate: regular rate GI: GI Palp: Yes Soft to palpation and No Tenderness to palpation present (GI) : General: Yes no CVA tenderness Penis: Yes normal penis Meatus: meatus normal and Blood at meatus present Urinary Catheter: Urinary Catheter: patent and draining, urine clear and urine with clots Extrem: Right lower extremity: no edema Left lower extremity: no edema Objective Data Vital Signs Vital Signs: Vital Signs - 24 hr 01/20/23 12:49 01/20/23 13:05 01/20/23 13:20 Temperature 98.3 F Pulse Rate 67 67 60 Respiratory Rate 11 L 12 12 Blood Pressure 80/51 L 108/75 120/86 Pulse Oximetry 99 100 100 Oxygen Delivery Simple Face Mask Simple Face Mask Simple Face Mask Oxygen Flow Rate 6 6 6 01/20/23 13:35 01/20/23 13:50 01/20/23 14:05 Temperature Pulse Rate 75 72 68 Respiratory Rate 16 12 12 Blood Pressure 129/86 129/97 H 127/93 H Pulse Oximetry 98 94 97 Oxygen Delivery Room Air Room Air Room Air Oxygen Flow Rate 01/20/23 14:30 01/20/23 14:45 01/20/23 15:15 Temperature 96.6 F L 96.4 F L 96.7 F L Pulse Rate 71 70 69 Respiratory Rate 14 14 14 Blood Pressure 135/89 128/90 140/88 Pulse Oximetry 97 97 99 Oxygen Delivery Oxygen Flow Rate 01/20/23 16:15 01/20/23 20:05 01/20/23 20:00 Temperature 96.7 F L 97.4 F L Pulse Rate 80 102 H Respiratory Rate 16 20 Blood Pressure 130/87 136/80 Pulse Oximetry 99 95 Oxygen Delivery Room Air Oxygen Flow Rate 01/21/23 00:05 01/21/23 04:05 Temperature 97.8 F 96.9 F L Pulse Rate 85 71 Respiratory Rate 16 16 Blood Pressure 118/70 119/82 Pulse Oximetry 96 97 Oxygen Delivery Oxygen Flow Rate Intake/Output Intake/Output: Intake & Output 01/18/23 01/19/23 01/20/23 01/21/23 23:59 23:59 23:59 23:59 Intake Total 1350 660 Output Total 2750 5059 [id number] -[id number] -[id number] Meds/Results Medications: Active Medications Generic Name Dose Route Start Last Admin Trade Name Freq PRN Reason Stop Dose Admin Hydrocodone Bitart/Acetaminophen 1 tab 01/20/23 14:20 01/21/23 09:00 Hydrocodone/Acetaminophen (*Crx) 5-325 Mg Tablet PO 1 tab Q4H PRN Administration Pain Rated 1-6 Atorvastatin Calcium 20 mg 01/21/23 09:00 01/21/23 08:52 Atorvastatin 20 Mg Tablet PO 20 mg DAILY CHARLIE Administration Cephalexin HCl 500 mg 01/21/23 09:00 01/21/23 08:51 Cephalexin 500 Mg Capsule PO 500 mg QID CHARLIE Administration Docusate Sodium 100 mg 01/20/23 17:00 01/21/23 08:52 Docusate Sodium 100 Mg Capsule PO 100 mg BID CHARLIE Administration Hyoscyamine 0.125 mg 01/20/23 14:20 01/20/23 20:14 Hyoscyamine Sulfate 0.125 Mg Tablet SUBLINGUAL 0.125 mg Q6H PRN Administration Bladder Spasm Metformin HCl 1,500 mg 01/21/23 08:00 01/21/23 08:50 Metformin Hcl 500 Mg Tablet PO 1,500 mg DAILY@0800 CHARLIE Administration Mo
[2023-01-21 11:51] VITALS: BP 118/67; PULSE 76; RESP 16; TEMP 37; O2SAT 98
--- NOTE | 2023-01-21 13:35 | WPDANESPN ---
Anes - Prog Note Post-Op Date/Time: 01/21/23 13:35 Cardiovascular status: normal Respiratory status: normal Airway patency: baseline Mental status: baseline Post-Op hydration status: normal Vital Signs: Last Vital Signs Temp 37.0 C 01/21/23 11:51 Pulse 76 01/21/23 11:51 Resp 16 01/21/23 11:51 BP 118/67 01/21/23 11:51 Pulse Ox 98 01/21/23 11:51 O2 Del Method Room Air 01/20/23 20:00 O2 Flow Rate 6 01/20/23 13:20 Pain Score (VAS): 08/25 I/O: Intake & Output 01/20/23 01/21/23 01/21/23 23:59 07:59 15:59 Intake Total 650 300 600 Output Total 1995 597 1563 Balance -850 -525 -8129 Laboratory Tests 01/21/23 05:53 01/21/23 05:53 01/20/23 01/21/23 13:56 05:53 Hgb 14.0 Hct 41.5 L Sodium 135 L Potassium 4.2 Chloride 103 Carbon Dioxide 26 Anion Gap 6 L BUN 11 Creatinine 0.90 Estim Creat Clear Calc 73 Estimated GFR > 60 Glucose 118 H POC Capillary Glucose 105 Calcium 8.5 Post-procedural complaints: none Patient Feedback: Patient satisfied with anesthetic care. Other Findings: patient reports having recieved excellent anesthesia care.
== END 2023-01-21 14:20 | disposition home or self-care (01) ==
LOC: ANHSURGERY 10:22 → ANH3MEDSUR 14:29
PROVIDERS: PCP Internal Medicine; Visit Provider Urology
PROC: 0VT08ZZ Resection of Prostate, Via Natural or Artificial Opening Endoscopic (ICD-10-PCS; CPT 52601; principal; 2023-01-20 12:30)
DX: N40.0 Benign prostatic hyperplasia without lower urinary tract symptoms (principal); I10 Essential (primary) hypertension; E11.9 Type 2 diabetes mellitus without complications; K21.9 Gastro-esophageal reflux disease without esophagitis; G47.33 Obstructive sleep apnea (adult) (pediatric); Z79.84 Long term (current) use of oral hypoglycemic drugs; Z79.82 Long term (current) use of aspirin
CPT/HCPCS: 52601; 36415; 80048; 82948; 85014; 85018; 88305; A9270; J0690; J1100; J2250; J2405; J2704; J3010; J7120; J7121

== ENCOUNTER 2024-03-08 13:53 | Outpatient (CLI) | payer BC, SELFPAY ==
--- NOTE | ~2024-03-08 | MR_ITS ---
EXAMINATION: MRA brain wo con DATE: 03/08/2024 14:56 INDICATION: Trigeminal neuralgia. TECHNIQUE: Magnetic resonance angiography (MRA) of the brain was performed without intravenous contra st with T1-weighted SPGR by the 3D [id number]-fonoqi technique. Maximum intensity projection 3D-reconstr uctions were obtained. COMPARISON: Brain MRI 03/08/2024 FINDINGS: The vertebral arteries are codominant. There is no significant stenosis of basilar artery or the post erior cerebral arteries. The posterior communicating arteries are normal. There is no significant lois nosis of the intracranial internal carotid arteries or anterior or middle cerebral arteries. Anterior communicating artery is normal. There is no aneurysm. The trigeminal nerves are normal. No vascular loop compression. IMPRESSION: 1. Normal MRA. Reviewed, dictated and finalized at location A. IMPRESSION: 1. Normal MRA.
--- NOTE | ~2024-03-08 | MR_ITS ---
EXAMINATION: MR brain/brain stem wo/w con DATE: 03/08/2024 15:04 INDICATION: Trigeminal neuralgia. TECHNIQUE: Magnetic resonance imaging (MRI) of the brain and brainstem was performed without and with 15 mL MultiHance intravenous contrast. COMPARISON: Brain MRI 02/17/2004 FINDINGS: There is no intracranial hemorrhage, acute infarction, or abnormal intracranial mass lesion . There are scattered areas of nonspecific increased T2-weighted signal intensity in the cerebral whi te matter. The ventricles are normal in size. There is mild mucosal thickening in the ethmoid sinuses . There are likely changes of right ocular lens replacement surgery. The mastoid air cells are normal . The cisternal segments of the trigeminal nerves are normal. IMPRESSION: 1. Normal trigeminal nerves. No vascular loop compression. 2. Mild nonspecific cerebral white matter disease, which likely represents chronic small vessel ische elizabeth disease. Reviewed, dictated and finalized at location A. IMPRESSION: 1. Normal trigeminal nerves. No vascular loop compression. 2. Mild nonspecific cerebral white matter disease, which likely represents home theater specialist kat small vessel ischemic disease.
== END 2024-03-08 13:54 | disposition home or self-care (01) ==
LOC: MICIMG 13:53
PROVIDERS: PCP Internal Medicine; Visit Provider Internal Medicine
DX: R90.82 White matter disease, unspecified (principal); G50.0 Trigeminal neuralgia
CPT/HCPCS: 70544; 70553; A9577

== ENCOUNTER 2024-07-21 09:29 | Outpatient (CLI) | payer BC, SELFPAY ==
--- OUTSIDE RECORDS SUMMARY | 2024-07-21 10:27 | XMS_ITS | Clinical Summary ---
[facility] Address [address] [place] [address] Care Team Providers Care Instrument Checker Name Role Phone Helen Jean MD Primary Care Provider [phone]- [phone] Allergies No known active allergies Medications metFORMIN (GLUCOPHAGE) 500 mg tablet 12/12/2019 Active semaglutide (Rybelsus) 3 mg Tablet 12/19/2021 Active telmisartan-amLO DIPine 80-10 mg Tablet Take 1 Tablet by mouth daily. 08/06/2022 Active terazosin (HYTRIN) 1 mg capsule Take 1 mg by mouth daily at bedtime. 09/25/2022 Active atorvastatin (LIPITOR) 20 mg tablet 09/29/2022 Active pantoprazole (PROTONIX) 40 mg Tablet, Delayed Release (E.C.) 08/01/2022 Acti ve aspirin (CINDY CHEWABLE) 81 mg Tablet, Chewable Take 81 mg by mouth daily. Active Active Problems No known active problems Family History Medical History Relation Name Comments Diabetes Brother 2 Diabetes Father Ovarian Cancer Mother Diabetes Sister 2 Diabetes Sister 3 Relation Name Status Comments Brother 1 Alive Brother 2 Alive Daughter 1 Alive Daughter 2 Alive Daughter 3 Alive Father Mother Sister 1 Sister 2 Sister 3 Son Alive Social History Tobacco Use Types Packs/Day Years Used Date Smoking Tobacco: Never Smokeless Tobacco: Never Alcohol Use Standard Drinks/Week Comments Yes 0 (1 standard drink = 0.6 oz pur e alcohol) occasional Sex and Gender Information Value Date Recorded Sex Assigned at Not on file Legal Sex Male 4:04 PM CDT Gender Identity Not on file Sexual Orientation Not on file Last Filed Vital Signs Vital Sign Reading Time Taken Comments Blood Pressure 143/80 10/23/2022 1:15 PM CDT Pulse 60 10/23/2022 1:14 PM CDT Temperature 36.4 C (97.6 F) 10/03/2022 11:51 AM CDT Respiratory Rate 10 10/23/2022 1:14 PM CDT Oxygen Saturation 100% 10/23/2022 1:14 PM CDT Inhaled Oxygen Concentration - - Weight 82.6 kg (182 lb) 10/23/2022 1:14 PM CDT Height - - Body Mass Index - - Plan of Treatment Health Maintenance Due Date Last Done Comments DTAP/TDAP/TD VACCINES (1 - Tdap) 1981 COLORECTAL SCREENING 2007 Colorectal Cancer Screening 2007 FIT-DNA Q 3 years 2007 FIT/FOBT Q 1 year 2007 Flex Sig/CT Colonography Q 5 years 2007 ZOSTER VACCINE (1 of 2) 2012 INFLUENZA VACCINE (#1) 2023 RSV VACCINE (60+ or ) (1 - 1-dose 75+ series) 2037 PNEUMOCOCCAL VACCINE 0-49 YEARS Aged Out No longer eligible based on patient's age to complete this topic [place] [address] [facility] BLUE ACCESS/TRUE BLUE PPO Care Teams Instrument Checker Relationship Specialty Start Date End Date Helen Jean MD [address] [place] [address] PCP - General Internal Medicine 10/03/22
--- OUTSIDE RECORDS SUMMARY | 2024-07-21 10:27 | XMS_ITS | Clinical Summary ---
Author Organization [facility] [address] Address [address] [place] [address] Care Team Providers Care Asset Protection Officer Name Role Phone Helen Jean MD Primary Care Provider [phone] Helen Jean MD Unavailable [phone] Allergies Active Allergy Reactions Criticality Noted Date Comments Nuts Anaphylaxis High 01/19/2022 Medications cetirizine (ZyrTEC) 10 mg tablet Take 10 mg by mouth daily 11/28/19 20 Active Farxiga 5 mg tablet Take 5 mg by mouth daily 11/18/19 20 Active EPINEPHrine 0.3 mg/0.3 mL auto-injection syringe INJECT 0.3 ML INTRAMUSCULARLY ONE TIME FOR ANAPHYLAXIS AND REPEAT IN 5 MINUTES IF NECESSARY 11/02/19 20 Active losartan (COZAAR) 100 mg tablet 09/09/19 20 Active metFORMIN (GLUCOPHAGE) 500 mg tablet 12/12/19 20 Active atorvastatin (LIPITOR) 20 mg tablet 11/30/19 22 Active cetirizine (ZyrTEC) 10 mg tablet 10/27/19 22 Active EPINEPHrine 0.3 mg/0.3 mL auto-injection syringe 01/08/20 22 Active fluticasone propionate (FLONASE) 50 mcg/actuation nasal spray 01/08/20 22 Active metFORMIN (GLUCOPHAGE) 500 mg tablet 11/22/19 22 Active Rybelsus 3 mg tablet 12/20/19 22 Active benzonatate (TESSALON) 200 mg capsuleIndicat ions:Acute cough Take 1 capsule (200 mg total) by mouth 3 (three) times a day as needed for cough 30 capsule 01/20/20 22 Active Active Problems No known active problems Surgical History Surgery Date Site/Laterality Comments CATARACT EXTRACTION Medical History Medical History Date Comments Hypertension Diabetes mellitus (HCC) Osteoarthritis Family History Medical History Relation Name Comments Diabetes Brother Diabetes Father Hypertension Father Cancer Mother Diabetes Mother Hypertension Mother Diabetes Paternal Grandmother Diabetes Sister Relation Name Status Comments Brother Father Mother Paternal Grandmother Sister Social History Tobacco Use Types Packs/Day Years Used Date Smoking Tobacco: Never Smokeless Tobacco: Never Tobacco Cessation:Counseling Given: Not Answered Alcohol Use Standard Drinks/Week Comments Yes 0 (1 standard drink = 0.6 oz pur e alcohol) Sex and Gender Information Value Date Recorded Sex Assigned at Not on file 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 Gender Identity Not on file Sexual Orientation Not on file Obstetrics History Last Filed Vital Signs Vital Sign Reading Time Taken Comments Blood Pressure 141/92 01/19/2022 9:08 AM CDT Pulse 97 01/19/2022 9:08 AM CDT Temperature 37.3 C (99.2 F) 01/19/2022 9:08 AM CDT Respiratory Rate 16 01/19/2022 9:08 AM CDT Oxygen Saturation 100% 01/19/2022 9:08 AM CDT Inhaled Oxygen Concentration - - Weight 81.7 kg (180 lb 3.2 oz) 01/19/2022 9:08 A M CDT Height 162.6 cm (5' 4 ) 01/19/2022 9:08 AM CDT Body Mass Index 30.93 01/19/2022 9:08 AM CDT Plan of Treatment Health Maintenance Due Date Last Done Comments Colon Cancer Screening-Colonoscopy 1960 Depression Screening 1960 Hepatitis C Screening 1960 Prostate Cancer Screening-PSA 1962 DTaP/Tdap/Td Vaccine (1 - Tdap) 1973 Hepatitis B Screening 1980 Regular Well Visit/Exam 18-64 1980 Zoster Vaccine (1 of 2) 2012 Covid-19 Vaccine (4 - 2023-2 5 season) 2024 04/08/2021, 09/06/2020, 08/16/2020 Influenza Vaccine (#1) 2024 Pneumococcal vaccine <65 Aged Out No longer eligible based on patient's age to complete this topic Insurance [place] [employer] Care Teams Asset Protection Officer Relationship Specialty Start Date End Date Helen Jena MD [address] [facility] [employer] [place] [id number] PCP - General Internal Medicine 01/19/22 Helen Jean MD [address] [employer] [employer] [address] Internal Medicine 01/19/22
--- OUTSIDE RECORDS SUMMARY | 2024-07-21 10:27 | XMS_ITS | Referral Summary ---
Author Organization [facility] [address] Address [address] [place] [phone] Care Team Providers Care Grey Roll Man Name Role Phone Helen Jean MD Primary Care Provider [phone]- [phone] Helen Jean MD Unavailable [phone] Allergies Active Allergy Reactions Criticality Noted Date [...] Active Active Problems No known active problems Social History Tobacco Use Types Packs/Day Years Used Date Smoking Tobacco: Never Smokeless Tobacco: Never Tobacco Cessation:Counseling Given: Not Answered Alcohol Use Standard Drinks/Week Comments Yes 0 (1 standard drink = 0.6 oz pur e alcohol) Sex and Gender Information Value Date Recorded Sex Assigned at Not on file 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
[2024-07-21 12:39] LABS: Basophils Absolute Auto 0.1 K/mm3 (0.0-0.1); Basophils Percent Auto 0.9 % (0.2-1.2); Eosinophils Absolute Auto 0.1 K/mm3 (0-0.3); Eosinophils Percent Auto 2.2 % (0-4.4); Hematocrit 44.2 % (42.0-52.0); Hemoglobin 14.6 g/dL (14.0-18.0); Immature Granulocyte Absolute 0.01 K/mm3 (0.00-0.031); Immature Granulocyte Percent A 0.2 % (0-0.5); Lymphocytes Absolute Auto 2.77 K/mm3 (0.9-3.2); Mean Corpuscular Volume 84.7 fl (80-100); Mean Platelet Volume 9.8 fl (7.4-10.4); Monocytes Absolute Auto 0.4 K/mm3 (0.1-0.6); Monocytes Percent Auto 7.8 % (2.6-8.5); Neutrophils Absolute Auto 2.2 K/mm3 (1.3-6.7); Neutrophils Percent Auto 38.9 % (45.5-73.1); Platelet Count Result 311 k/mm3 (150-375); Red Blood Count 5.22 M/mm3 (4.6-6.20); White Blood Count 5.5 K/mm3 (4.5-10.0)
[2024-07-21 13:16] LABS: MALB Creatinine Ratio 32.1 mg/g (0-30); Microalbumin Urine Random 48.4 mg/L (0-16.7)
[2024-07-21 13:28] LABS: Alanine Aminotransferase 26 U/L (6-50); Albumin Level 4.4 g/dL (3.5-5.1); Alkaline Phosphatase 94 U/L (38-126); Anion Gap 10 mmol/L (4-12); Aspartate Amino Transferase 59 U/L (17-59); Bilirubin,Total 0.7 mg/dL (0.2-1.3); Blood Urea Nitrogen 14 mg/dL (9-20); Calcium 9.8 mg/dL (8.4-10.2); Carbon Dioxide 29 mmol/L (22-30); Chloride 102 mmol/L (98-107); Cholesterol 104 mg/dL (0-200); Estimated Glomerular Filt Rate > 60; Glucose 126 mg/dL (65-110); HDL Direct 40 mg/dL; Potassium 3.9 mmol/L (3.4-5.0); Sodium 141 mmol/L (137-145); Triglycerides 94 mg/dL (<150)
[2024-07-21 13:40] LABS: LDL Cholesterol Direct 40 mg/dL
[2024-07-21 14:01] LABS: Prostate Specific Antigen 0.7 ng/mL (< OR = 4.0)
[2024-07-21 14:19] LABS: Hemoglobin A1C 6.4 % (<5.7)
== END 2024-07-21 09:30 | disposition home or self-care (01) ==
LOC: ANHGOSHLAB 09:30
PROVIDERS: PCP Internal Medicine; Visit Provider Internal Medicine
DX: Z12.5 Encounter for screening for malignant neoplasm of prostate (principal); I10 Essential (primary) hypertension; E11.65 Type 2 diabetes mellitus with hyperglycemia
CPT/HCPCS: 36415; 80053; 80061; 82043; 82172; 83036; 84153; 85025; G0103

== ENCOUNTER 2024-10-05 14:00 | Outpatient (CLI) | payer BC, SELFPAY ==
--- NOTE | ~2024-10-05 | XR_ITS ---
XR cervical spine min 6V Ordering provider: Norma Walsh NP History: . M54.12 - Radiculopathy, cervical region . Comparison: October 25, 2009 FINDINGS: VERTEBRAL BODIES: Normal height and alignment. No visible fracture or subluxation. The dens is intact . Degenerative changes of the spine. DISK SPACES: Narrowing of the disc C5-C6 and C6-C7. Multilevel facet joint disease. Multilevel uncove rtebral joint osteoarthritic changes. Slight narrowing of the foramina and the mid cervical area of t he levels of C3-C4, C4-C5 and C5-C6 more on the right side.. PARASPINOUS SOFT TISSUES: No prevertebral soft tissue swelling. IMPRESSION: No acute osseous abnormality cervical spine. Multilevel degenerative disc disease. Reviewed, dictated and finalized at location A.
== END 2024-10-05 14:01 | disposition home or self-care (01) ==
LOC: GOSHIMG 14:00
PROVIDERS: PCP Nurse Practitioner; Visit Provider Nurse Practitioner
DX: M50.322 Other cervical disc degeneration at C5-C6 level (principal); M50.323 Other cervical disc degeneration at C6-C7 level
CPT/HCPCS: 72052

== ENCOUNTER 2024-10-18 00:09 | Day surgery (SDC) | payer BC, SELFPAY ==
[2024-10-11 09:20] VITALS: BMI 24.9
--- OUTSIDE RECORDS SUMMARY | 2024-10-18 00:12 | XMS_ITS | Clinical Summary ---
[facility] Address [address] [place] [address] Care Team Providers Care Project Controller Name Role Phone Helen Jean MD Primary Care Provider [phone]- [phone] Allergies No known active allergies Medications metFORMIN [...] ) (1 - 1-dose 75+ series) 2037 [place] [address] [facility] BLUE [employer]/TRUE BLUE PPO Care Teams Project Controller Relationship Specialty Start Date End Date Helen Jean MD [address] [place] [address] PCP - General Internal Medicine 10/03/22
--- OUTSIDE RECORDS SUMMARY | 2024-10-18 00:12 | XMS_ITS | Clinical Summary ---
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 Gender Identity Not on file Sexual Orientation [...] A M CDT Height 162.6 cm (5' 4) 01/19/2022 9:08 AM CDT Body Mass Index [...] season) 2024 04/08/2021, 09/06/2020, 08/16/2020 Influenza Vaccine (Season Ended) 2025 Pneumococcal vaccine <65 Aged Out No longer eligible based on patient's age to complete this topic Insurance [employer] [place] [employer] [place] Care Teams Practice Nurse Relationship Specialty Start Date End Date Helen Jean MD [address] [facility] [place] [address] PCP - General Internal Medicine 01/19/22 Helen Jean MD [address] [employer] [address] Internal Medicine 01/19/22
--- OUTSIDE RECORDS SUMMARY | 2024-10-18 00:12 | XMS_ITS | Referral Summary ---
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
[2024-10-18 07:18] VITALS: BP 129/91; PULSE 52; RESP 17; TEMP 36.6; O2SAT 100; BMI 26.4
[2024-10-18] MEDS: LACTATED RINGERS 1,000 ML 150 ML IV CONT (07:23)
--- NOTE | 2024-10-18 07:23 | P.PNAN_ITS ---
Anes - Initial Pre Proc Eval Procedure: Operation Date: 10/18/24 08:30 Proposed Procedures p Screening Colonoscopy - John Braun MD Date/Time: 10/18/24 07:23 Surgeon: John Braun MD Pre Op Diagnosis: Encounter for screening for malignant neoplasm of Patient Data Age: 64 Gender: M Height: 1.63 m Weight: 69.7 kg Last Vital Signs Temp 36.6 C 10/18/24 07:18 Pulse 52 L 10/18/24 07:18 Resp 17 10/18/24 07:18 BP 129/91 H 10/18/24 07:18 Pulse Ox 100 10/18/24 07:18 O2 Del Method Room Air 10/18/24 07:18 Allergies Allergy/AdvReac Type Severity Reaction Status Date / Time NUTS AND MANY FRUITS Allergy Unknown Anaphylactic Uncoded 10/18/24 07:17 Shock Home Medications ?Medication ?Instructions ?Recorded ?Confirmed ?Type atorvastatin 20 mg tablet (Lipitor) 20 mg PO DAILY 07/21/24 10/11/24 History cetirizine 10 mg tablet 10 mg PO DAILY PRN allergy symptoms 07/21/24 10/11/24 History hydrochlorothiazide 12.5 mg tablet 12.5 mg PO DAILY 07/21/24 10/11/24 History latanoprost 0.005 % eye drops 1 drp EACH EYE DAILY 07/21/24 10/11/24 History metformin 500 mg tablet 1,500 mg PO BID 07/21/24 10/11/24 History pantoprazole 40 mg tablet,delayed 40 mg PO QAM 07/21/24 10/11/24 History release semaglutide 3 mg tablet (Rybelsus) 3 mg PO DAILY 07/21/24 10/11/24 History telmisartan 80 mg-amlodipine 10 mg 1 tablet PO DAILY #90 tabs 08/08/24 10/11/24 Rx tablet gabapentin 100 mg capsule 100 mg PO DAILY PRN pain 10/11/24 10/11/24 History tadalafil 5 mg tablet (Cialis) 5 mg PO DAILY PRN sexual activity 10/11/24 10/11/24 History Patient hx anesthesia problems: none Family hx anesthesia problems: none Results Review: All pre-operative results and documents have been reviewed as part of the pre- operative evaluation. [facility] Past Medical History Medical History Family history of stroke or transient ischemic attack in father Constipation DM w/o complication type II BPH (benign prostatic hyperplasia) GERD (gastroesophageal reflux disease) TAMAR (obstructive sleep apnea) Essential (primary) hypertension Controlled diabetes mellitus with hyperglycemia, without long-term current use of insulin Surgical History Surgical History History of transurethral resection of prostate Family History Family History Mother Hypertension Cerebrovascular accident Family history of diabetes mellitus in first degree relative Family history of malignant neoplasm of ovary Father Cerebrovascular accident Family history of diabetes mellitus in first degree relative Sibling Family history of diabetes mellitus in first degree relative Social History Social History Smoking status: Never smoker Second hand tobacco smoke exposure: No Alcohol intake: current Alcohol use details: 1 EVERY 4 MONTHS Substance use: never Substance use type: does not use Do You Feel Safe in your Home?: Yes Lack of Transportation: No Lack of Food: Never True Current Housing: I Have Housing Concerned About Future Housing: No Difficulty Paying Gas/Electric Bills: No Difficulty Paying for Meds: No Currently Unemployed: No Education: Bachelor's Degree Difficulty w/ Childcare or Family Care: No Living arrangements: with family Additional living arrangements comments: with sp Occupation/Education: occupation Gender identity (if verbalized by the patient): Male Spiritual care concerns: No Agree to blood products: Yes Anes - Eval Final PreProcedure Day of Procedure 10/18/24 07:23 Patient weight: overweight Heart: regular rate and rhythm Lungs: clear to auscultation Airway: Mallampati scale class II Neurological: alert and oriented Last oral intake: >/= 8 hours ASA classification: III Emergent: no Anesthetic plan: proceed Anesthesia type and monitoring: general GIVS and standard monitoring Results Review: All pre-operative results and documents have been reviewed as part of the pre- operative evaluation. Informed Consent: The patient's anesthetic plan and its attendant risks and benefits were discussed with the patient/family/POA. Questions were solicited and answers provided to the satisfaction of the patient/family/POA.
[2024-10-18 07:24] LABS: Glucose Point of Care 120 mg/dl (65-105)
--- NOTE | 2024-10-18 08:13 | PM.HPGS ---
History of Present Illness History of Present Illness Consent: Risks, benefits, and alternatives have been discussed and questions answered. Patient agrees to proceed with procedure. Chief complaint: Encounter for screening for malignant neoplasm of Narrative: Jose Manuel Laura is a 64 year old male here for screening colonoscopy, last one 2020 Review of Systems Review of Systems: All systems reviewed & are unremarkable except as noted in HPI and below PMFSH Past Medical History Medical History Family history of stroke or transient ischemic attack in father Constipation DM w/o complication type II BPH (benign prostatic hyperplasia) GERD (gastroesophageal reflux disease) TAMAR (obstructive sleep apnea) Essential (primary) hypertension Controlled diabetes mellitus with hyperglycemia, without long-term current use of insulin Surgical History Surgical History History of transurethral resection of prostate Family History Family History Mother Hypertension Cerebrovascular accident Family history of diabetes mellitus in first degree relative Family history of malignant neoplasm of ovary Father Cerebrovascular accident Family history of diabetes mellitus in first degree relative Sibling Family history of diabetes mellitus in first degree relative Social History Social History Smoking status: Never smoker Second hand tobacco smoke exposure: No Alcohol intake: current Alcohol use details: 1 EVERY 4 MONTHS Substance use: never Substance use type: does not use Do You Feel Safe in your Home?: Yes Lack of Transportation: No Lack of Food: Never True Current Housing: I Have Housing Concerned About Future Housing: No Difficulty Paying Gas/Electric Bills: No Difficulty Paying for Meds: No Currently Unemployed: No Education: Bachelor's Degree Difficulty w/ Childcare or Family Care: No Living arrangements: with family Additional living arrangements comments: with sp Occupation/Education: occupation Gender identity (if verbalized by the patient): Male Spiritual care concerns: No Agree to blood products: Yes Meds Home Medications and Allergies Home Medications ?Medication ?Instructions ?Recorded ?Confirmed ?Type atorvastatin 20 mg tablet (Lipitor) 20 mg PO DAILY 07/21/24 10/11/24 History cetirizine 10 mg tablet 10 mg PO DAILY PRN allergy symptoms 07/21/24 10/11/24 History hydrochlorothiazide 12.5 mg tablet 12.5 mg PO DAILY 07/21/24 10/11/24 History latanoprost 0.005 % eye drops 1 drp EACH EYE DAILY 07/21/24 10/11/24 History metformin 500 mg tablet 1,500 mg PO BID 07/21/24 10/11/24 History pantoprazole 40 mg tablet,delayed 40 mg PO QAM 07/21/24 10/11/24 History release semaglutide 3 mg tablet (Rybelsus) 3 mg PO DAILY 07/21/24 10/11/24 History telmisartan 80 mg-amlodipine 10 mg 1 tablet PO DAILY #90 tabs 08/08/24 10/11/24 Rx tablet gabapentin 100 mg capsule 100 mg PO DAILY PRN pain 10/11/24 10/11/24 History tadalafil 5 mg tablet (Cialis) 5 mg PO DAILY PRN sexual activity 10/11/24 10/11/24 History Allergies Allergy/AdvReac Type Severity Reaction Status Date / Time NUTS AND MANY FRUITS Allergy Unknown Anaphylactic Uncoded 10/18/24 07:17 Shock Vital Signs Vital Signs - 24 hr 10/18/24 07:18 Temperature 97.9 F Pulse Rate 52 L Respiratory Rate 17 Blood Pressure 129/91 H Pulse Oximetry 100 Oxygen Delivery Room Air Exam Const: General: comfortable and no acute distress HENMT: Face/Nose/Sinus: Normal nares present Eyes: General: appearance normal, both eyes and all related structures Neck: Neck: no JVD Resp: Auscultation: clear to auscultation bilaterally Cardio: Rate: regular rate Rhythm: regular rhythm GI: Inspection: non-distended GI Palp: Yes Soft to palpation Skin: General skin exam: normal color Neuro: Speech: normal speech Extrem: General: normal to inspection Psych: Mental Status: mental status grossly normal Assessment and Plan Assessment and plan (1) Colon cancer screening: Code(s): Z12.11 - Encounter for screening for malignant neoplasm of colon Status: Acute Assessment and Plan: colonoscopy
--- NOTE | 2024-10-18 08:26 | S_PTH ---
PATIENT: Jose Manuel Laura LOC: [facility] Ja[facility]#:[id number] AGE/SX: 64/M ROOM: RE10/18/[address]: John Braun MD : 1960 BED: DIS: 10/18/2024 SPEC #: [id number] RECD: 10/18/24 09:23 STATUS: LUCIEN REQ #: [id number] CHERIE: 10/18/24 08:[address]: John Braun DEPT: [facility] Surgical RECD BY: Tiesha Paredes ENTERED: 10/18/24 09:23 SP TYPE: Surgical OTHR DR: Matteo Bah DO Tissues: A - Colon Polypectomy B - Colon Polypectomy Procedures: Hematoxylin and Eosin Stain Gross and Microscopic Level 4
[2024-10-18 08:28] VITALS: BP 96/67; PULSE 79; RESP 13; O2SAT 96
[2024-10-18 08:38] VITALS: BP 102/68; PULSE 77; RESP 11; O2SAT 97
[2024-10-18 08:48] VITALS: BP 116/61; PULSE 68; RESP 18; O2SAT 99
== END 2024-10-18 09:00 | disposition home or self-care (01) ==
PROVIDERS: PCP Internal Medicine; Referring Provider Internal Medicine; Visit Provider Internal Medicine Gastroenterology
PROC: 0DJD8ZZ Inspection of Lower Intestinal Tract, Via Natural or Artificial Opening Endoscopic (ICD-10-PCS; CPT 45378; principal; 2024-10-18 08:30)
DX: Z12.11 Encounter for screening for malignant neoplasm of colon (principal); D12.2 Benign neoplasm of ascending colon; D12.3 Benign neoplasm of transverse colon; K64.8 Other hemorrhoids; K57.30 Diverticulosis of large intestine without perforation or abscess without bleeding; I10 Essential (primary) hypertension; E11.65 Type 2 diabetes mellitus with hyperglycemia; G47.33 Obstructive sleep apnea (adult) (pediatric); K21.9 Gastro-esophageal reflux disease without esophagitis; N40.0 Benign prostatic hyperplasia without lower urinary tract symptoms; Z79.84 Long term (current) use of oral hypoglycemic drugs; Z98.890 Other specified postprocedural states; Z80.41 Family history of malignant neoplasm of ovary; Z82.49 Family history of ischemic heart disease and other diseases of the circulatory system
CPT/HCPCS: 45385; 82948; 88305; J2704; J7120

== ENCOUNTER 2024-11-21 12:30 | Outpatient (RCR) | payer BC, SELFPAY ==
--- NOTE | 2024-10-24 14:52 | OPREHPOC ---
Outpatient Therapy Plan of Care This is a Multidisciplinary Plan of Care that may contain components documented by all disciplines (PT, OT, and ST.) PT Problem 1 PT Problem #1 Knowledge Deficit PT Goal 1 Goal / Goal Update Patient to demonstrate independence with home exercise program for improved self-reliance of symptom management. Target Visit 8 PT Problem 2 PT Problem #2 Pain PT Goal 1 Goal / Goal Update 1. Patient to decrease subjective reports of pain to <2/10 for improved ADL and job duty tolerance. 2. Patient to report an improvement in L arm radiating symptoms by 50% to increase ability to perform ADLs. PT Goal 2 Target Visit 8 PT Problem 3 PT Problem #3 Impaired Range of Motion PT Goal 1 Goal / Goal Update 1. Pt will increase cervical extension to 30 degrees to assist in overhead activities 2. Pt will increase cervical rotation to 45 degrees radha with no presence of radicular pain Target Visit 8
--- NOTE | 2024-10-24 14:52 | PTOPEVAL1 ---
Assessment and note entered by Brodie Gupta PT Evaluation Information Assessment Status Evaluation Diagnosis Cervical radiculopathy ICD-10 Condition Codes (PT) Cervicalgia M54.2,Radiculopathy, cervical M54.13 Onset chronic Subjective Information Pt states the neck and arm pain started 5 months and has numbness tingling all the down to the fingers. Pt states he has minor difficulty with driving due to arm pain. Pt states he went to [place] and x rays were performed showing spinal stenosis and disc denegation. Pt was previously treating neck with chiropractor, anti inflammatory and gabapentin. Reported Pain Level Pain Score 3,0: Self Report Assessment PT Clinical Summary Patient presents to physical therapy with a primary issue of neck pain with radiating L arm pain since late 2023. Patient demonstrates scapular weakness, pain, decreased cervical mobility, abnormal posture that limit their ability to perform activities of daily living and functional movements. Patient will benefit from skilled physical therapy to address the above listed deficits and return to prior level of function. Home exercise program instructed and written handout provided, exercises tolerated well with no adverse effects to note post-session. Patient was educated on importance of adherence to home exercise program. Patient was also educated on anatomy, prognosis, home modalities, and plan of care. Plan of Care Interventions Electrical Stimulation,Hot Pack/Cold Pack,Manual Therapy,Mechanical Traction,Neuro Re-education, Patient/Caregiver Education,Therapeutic Activities ,Therapeutic Exercise,Self-Care/Home Management, Ultrasound,Other PT Services Indicated Yes Treatment Frequency and 2x week 8 visits Duration These treatments will address the objective and functional deficits as defined above. The patient will be advanced safely and appropriately in order for the patient to progress towards his/her prior level of function. Additional exercises will be introduced and as well as a comprehensive home exercise program upon discharge, if needed, ?to ensure carryover of functional gains achieved in the clinic. This treatment plan has been reviewed and agreement upon by the patient.
--- NOTE | 2024-11-21 13:25 | PTOPDC ---
Assessment and note entered by Brodie Gupta PT Evaluation Information Assessment Status Discharge Diagnosis Cervical radiculopathy ICD-10 Condition Codes (PT) Cervicalgia M54.2,Radiculopathy, cervical M54.13 Onset chronic Subjective Information Pt states he feels 80% better overall and notes a reduction in numbness and tingling and no longer has to wear his arm compression sleeve. Pt notes he feels confident in performing HEP and made changes to his desk set up at work. Pt states he feels much better and his symptoms are manageable. Reported Pain Level Pain Score 1,3: Self Report Assessment PT Clinical Summary Patient's cervical radiculopathy has improved overall as evidenced by decrease in radicular symptoms, and increases in mobility, strength, and overall functional use of the extremity. Patient has met therapy goals and is pleased with progress made towards the remaining goals. Patient to discharge from physical therapy this date and continue with updated home exercise program as instructed. New exercises where implemented with cues and written hands provided for home. Patient to contact physical therapist or primary care provider if questions or concerns arise. Plan of Care PT Services Indicated No
== END 2024-11-22 09:21 | disposition home or self-care (01) ==
LOC: ANHGOSHPT 12:30
PROVIDERS: PCP Internal Medicine; Visit Provider Nurse Practitioner
DX: M54.12 Radiculopathy, cervical region (principal)
CPT/HCPCS: 97110; 97112; 97140; 97161

== ENCOUNTER 2024-11-29 09:04 | Outpatient (CLI) | payer BC, SELFPAY ==
--- OUTSIDE RECORDS SUMMARY | 2024-11-29 09:19 | XMS_ITS | Clinical Summary ---
Author Organization [facility] Address [address] [place] [address] Care Team Providers Care Therapist Name Role Phone Helen Jean MD Primary Care Provider [phone]- [phone] Allergies No known active allergies Medications metFORMIN [...] (1 of 2) 2012 INFLUENZA VACCINE (#1) 2024 RSV VACCINE (60+ or ) (1 - 1-dose 75+ series) [address] BLUE [employer]/TRUE BLUE PPO Care Teams Therapist Relationship Specialty Start Date End Date Helen Jean MD PCP - General Internal Medicine 10/03/22
--- OUTSIDE RECORDS SUMMARY | 2024-11-29 09:19 | XMS_ITS | Referral Summary ---
Author Organization [facility] [address] Address [address] [place] [address] Care Team Providers Care Hospital Unit Clerk Name Role Phone Helen Jean MD Primary Care Provider [phone]- [phone] Helen Jean MD Unavailable [phone] Allergies Active Allergy Reactions Criticality Noted Date [...] on file Legal Sex Male 6:12 PM [employer] Gender Identity Not on file Sexual Orientation [...] Plan of Treatment Not on file Insurance [facility] Care Teams Hospital Unit Clerk Relationship Specialty Start Date End Date Helen Jean MD PCP - General Internal Medicine 01/19/22 Helen Jean MD Internal Medicine 01/19/22
--- OUTSIDE RECORDS SUMMARY | 2024-11-29 09:19 | XMS_ITS | Clinical Summary ---
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
[2024-11-29 15:16] LABS: Hemoglobin A1C 6.7 % (<5.7)
== END 2024-11-29 09:05 | disposition home or self-care (01) ==
LOC: ANHGOSHLAB 09:05
PROVIDERS: PCP Internal Medicine; Visit Provider Nurse Practitioner
DX: E11.9 Type 2 diabetes mellitus without complications (principal)
CPT/HCPCS: 36415; 83036

== ENCOUNTER 2024-12-20 13:40 | Outpatient (CLI) | payer BC, SELFPAY ==
--- NOTE | ~2024-12-20 | MR_ITS ---
MRI of the cervical spine Clinical History: Recurrent uropathy Technique: Axial T2-weighted and gradient images, and sagittal T1-weighted, T2-weighted, and STIR tin ges were acquired. Findings: No fracture or subluxation. There is minimal reversal of the normal cervical lordosis. No s uspicious bone marrow signal abnormality seen. At C2-C3, there is no disc bulge or herniation. No spinal canal stenosis, cord compression, or neural foraminal narrowing. At C3-C4, there is mild disc osteophyte complex, without canal stenosis or cord compression. There is probable mild bilateral neural foraminal narrowing. At C4-C5, there is disc osteophyte complex with small central disc protrusion. No ambika canal stenosi s or cord compression. Neural foramina appear preserved. At C5-C6, there is degenerative disc narrowing with disc osteophyte complex. There is moderate canal stenosis and mild cord compression. There is bilateral neural foraminal narrowing. At C6-C7, there is disc osteophyte complex with moderate canal stenosis and ventral cord compression. There is bilateral neural foraminal narrowing. No abnormal signal seen in the spinal cord. Paravertebral soft tissues are unremarkable. Impression: Severe degenerative changes with canal stenosis and mild cord compression at C5-C6 and C6-C7. There i s severe bilateral neural foraminal narrowing at these levels. Reviewed, dictated and finalized at location . Impression: Severe degenerative changes with canal stenosis and mild cord compression at C5 -C6 and C6-C7. There is severe bilateral neural foraminal narrowing at these le vels.
== END 2024-12-20 13:41 | disposition home or self-care (01) ==
PROVIDERS: PCP Chiropractor; Visit Provider Nurse Practitioner
DX: M47.892 Other spondylosis, cervical region (principal); M48.02 Spinal stenosis, cervical region; G95.29 Other cord compression
CPT/HCPCS: 72141

== ENCOUNTER 2025-02-15 10:12 | Outpatient (CLI) | payer BC, SELFPAY ==
--- OUTSIDE RECORDS SUMMARY | 2025-02-15 10:57 | XMS_ITS | Clinical Summary ---
[facility] Address [address] [place] [address] Care Team Providers Care Soaping Machine Back Tender Name Role Phone Helen Jean MD Primary Care Provider [phone] Allergies No known active allergies Medications metFORMIN [...] - 1-dose 75+ series) [address] [employer]UE [employer] PPO Care Teams Soaping Machine Back Tender Relationship Specialty Start Date End Date Helen Jean MD PCP - General Internal Medicine 10/03/22
--- OUTSIDE RECORDS SUMMARY | 2025-02-15 10:57 | XMS_ITS | Clinical Summary ---
Author Organization [facility] [address] Address [address] [place] [id number] Care Team Providers Care Repair Service Clerk Name Role Phone Helen Jean MD Primary Care Provider [phone] Helen Jean MD Unavailable [phone] Allergies Active Allergy Reactions Criticality Noted Date [...] Medical History Date Comments Hypertension Diabetes mellitus Osteoarthritis Family History Medical History Relation Name [...] on file Legal Sex Male 6:12 PM [employer] Gender Identity Not on file Sexual Orientation [...] of 2) 2012 Covid-19 Vaccine (4 - 2024-2 6 season) 2025 04/08/2021, 09/06/2020, 08/16/2020 Influenza Vaccine (#1) 2025 Pneumococcal vaccine <65 Aged Out No longer eligible based on patient's age to complete this topic Insurance [place] [id number] Care Teams Repair Service Clerk Relationship Specialty Start Date End Date Helen Jean MD PCP - General Internal Medicine 01/19/22 Helen Jean MD Internal Medicine 01/19/22
[2025-02-15 13:06] LABS: Magnesium 1.8 mg/dL (1.6-2.3)
[2025-02-15 13:07] LABS: Alanine Aminotransferase 20 U/L (6-50); Albumin Level 4.2 g/dL (3.5-5.1); Alkaline Phosphatase 90 U/L (38-126); Anion Gap 10 mmol/L (4-12); Aspartate Amino Transferase 57 U/L (17-59); Bilirubin,Total 0.9 mg/dL (0.2-1.3); Blood Urea Nitrogen 19 mg/dL (9-20); Calcium 9.6 mg/dL (8.4-10.2); Carbon Dioxide 26 mmol/L (22-30); Chloride 100 mmol/L (98-107); Estimated Glomerular Filt Rate 60; Glucose 163 mg/dL (65-110); Potassium 3.7 mmol/L (3.4-5.0); Sodium 136 mmol/L (137-145); Total Protein 7.9 g/dL (6.3-8.2)
[2025-02-15 13:38] LABS: Thyroid Stimulating Hormone 1.460 uIU/mL (0.465-4.680)
== END 2025-02-15 10:13 | disposition home or self-care (01) ==
PROVIDERS: Nurse Practitioner; PCP Internal Medicine; Visit Provider Nurse Practitioner
DX: R25.2 Cramp and spasm (principal); E11.9 Type 2 diabetes mellitus without complications
CPT/HCPCS: 36415; 80053; 83735; 84443